=== PATIENT | male | born 1985 | race Caucasian/White ===

== ENCOUNTER → 2016-11-03 15:30 | Emergency (ER) | payer OTHER ==
[~2016-11-03 15:30] MED LIST: ACCU CHEK IN; CARAFATE1 GM PO; CERTAGEN PO; FAMOTIDINE PO; FOLIC ACID1 MG PO; HUMALOG100 U/M1 SQ; HUMALOG100 U/M2; HUMALOG100 U/ML; HUMALOG100 U/ML SUBQ; HUMULIN R100 U/ML SUBQ; LANTUS100 U/ML SUBQ; LEVEMIR SUBQ; LEVEMIR100 U/ML SUBQ; LEVEMIR100 UNITS/; LEVEMIR100 UNITS/ SUBQ; LISINOPRIL10 MG PO; LISINOPRIL20 MG PO; MEGA MULTIVITA1 EACH PO; METOPROLOL TAR25 MG PO; NO MEDICATIONS; NOVOLOG100 U/ML SUBQ; OMEPRAZOLE40 MG PO; PEPCID PO; PHENERGAN PO; PHENERGAN PR; PHENERGAN SUPP25 MG PR; PHENERGAN25 M1 PO; PHENERGAN25 MG PO; PHENERGAN50 MG/SUPP RC; PREVACID15 M1 PO; PRILOSEC20 M1 PO; PRILOSEC20 MG PO; PROTONIX PO; REGLAN10 MG PO; THIAMINE HCL100 MG PO; ZANTAC PO; ZESTRIL10 M1 PO; ZOFRAN ODT4 MG/UDTAB PO; ZOFRAN PO; ZOFRANODT PO
== END | disposition left against medical advice (07) ==
LOC: CED 15:30
DX: Z53.21 Procedure and treatment not carried out due to patient leaving prior to being seen by health care provider (principal)